=== PATIENT | female | born 1990 | race Caucasian/White ===

== ENCOUNTER 2018-12-04 11:57 | Emergency (ER) | payer BC ==
[~2018-12-04] VITALS: Ht 162.6 cm; Wt 53.4 kg
[2018-12-04 11:58] VITALS: BP 122/90
== END 2018-12-04 12:55 | disposition home or self-care (01) ==
LOC: ED 12:30
DX: L03.211 Cellulitis of face (principal); F17.200 Nicotine dependence, unspecified, uncomplicated
CPT/HCPCS: 99283

== ENCOUNTER 2019-10-07 10:23 | Emergency (ER) | payer BC, OTHER ==
[~2019-10-07] VITALS: Ht 162.6 cm; Wt 56.5 kg
[2019-10-07 10:27] VITALS: BP 119/75
--- NOTE | 2019-10-07 11:00 | NUR ---
TO [facility] FROM LOBBY
--- NOTE | 2019-10-07 11:19 | NUR ---
29 Y/O FEMALE PRESENTS TO ED WITH C/O FB. PER PT "I CUT A WIRE FROM MY BRACES AND IT WENT DOWN MY THROAT. IT HAPPENED TWO DAYS AGO. IT JUST FEELS LIKE IT'S STUCK THERE." NADN. NO C/O COMPLICATIONS WITH EATING, SWALLOWING.
--- NOTE | 2019-10-07 11:56 | NUR ---
BEDSIDE REPORT TO JAYLIN TAVARES.
--- NOTE | 2019-10-07 12:39 | NUR ---
Patient/Caregiver given discharge instructions and they have confirmed that they understand the instructions. Patient ambulatory with steady gait.
== END 2019-10-07 12:41 | disposition home or self-care (01) ==
LOC: ED 12:00
DX: T17.298A Other foreign object in pharynx causing other injury, initial encounter (principal); X58.XXXA Exposure to other specified factors, initial encounter; Y93.89 Activity, other specified; Y92.89 Other specified places as the place of occurrence of the external cause; Y99.8 Other external cause status
CPT/HCPCS: 70360; 99283

== ENCOUNTER 2020-09-04 11:51 | Emergency (ER) | payer MEDICAID ==
--- NOTE | 2020-09-04 12:15 | NUR ---
INITIAL PT CONTACT. PT PRESENTS TO ED C/O INTERMITTENT CHEST PAIN AND PALPITATIONS THAT HAVE BEEN OCCURING FOR 3 DAYS. 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 PT STATES THE PAIN IS PRESENT INTERMITTENTLY AND LASTS 5-10 MINUTES AT A TIME, ABLE TO "CALM DOWN" AND REDUCE CHEST PAIN. PT SITTING UPRIGHT ON GURNEY, NAD, VSS. PT DENIES ANY NEEDS AT THIS TIME. ERP AT BEDSIDE. CALL LIGHT WITHIN REACH.
[2020-09-04 12:45] LABS: BASOPHILS % (AUTO) 1 % (0-1); EOSINOPHILS % (AUTO) 4 % (1-7); LYMPHOCYTES % (AUTO) 31 % (22-44); MEAN CORPUSCULAR HEMOGLOBIN 31.2 pg (27.0-34.8); MEAN CORPUSCULAR HGB CONC 33.3 g/dL (32.4-35.8); MEAN PLATELET VOLUME 8.6 fL (7.4-10.4); MONOCYTES % (AUTO) 9 % (2-9); NEUTROPHILS % (AUTO) 55 % (42-75); PLATELET COUNT 209 x10^3/uL (130-400); RED BLOOD COUNT 4.54 x10^6/uL (3.82-5.3); RED CELL DISTRIBUTION WIDTH 12.6 % (9.6-15.2)
[2020-09-04 12:57] LABS: ALANINE AMINOTRANSFERASE 20 U/L (12-78); ALBUMIN 4.1 g/dL (3.4-5.0); ANION GAP 4 mmol/L (5-15); CALCIUM 9.1 mg/dL (8.5-10.1); CHLORIDE 106 mmol/L (98-107); CREATININE 0.77 mg/dL (0.55-1.02)
--- NOTE | 2020-09-04 13:00 | NUR ---
PT SITTING UPRIGHT ON GURNEY, NAD, VSS. PT DENIES ANY NEEDS AT THIS TIME. CALL LIGHT WITHIN REACH.
[2020-09-04 13:03] LABS: ALKALINE PHOSPHATASE 76 U/L (45-117); TOTAL PROTEIN 7.8 g/dL (6.4-8.2); TROPONIN I < 0.015 ng/mL (0.000-0.045)
[2020-09-04 13:05] LABS: MD NO
[2020-09-04 13:40] VITALS: BP 108/64
--- NOTE | 2020-09-04 13:40 | NUR ---
Patient given discharge instructions and they have confirmed that they understand the instructions. Patient ambulatory with steady gait.
== END 2020-09-04 13:49 | disposition home or self-care (01) ==
LOC: ED 12:26
DX: R07.89 Other chest pain (principal); R00.2 Palpitations; M79.602 Pain in left arm
CPT/HCPCS: 36415; 71045; 80053; 84443; 84484; 84703; 85025; 93005; 99285

== ENCOUNTER 2021-02-02 07:01 | Emergency (ER) | payer MEDICAID ==
[~2021-02-02] VITALS: Ht 162.6 cm; Wt 54.5 kg
[2021-02-02] MEDS ORDERED: DICYCLOMINE 10 MG/ML, 2ML IM ONE (07:30)
[2021-02-02] MEDS ORDERED: SODIUM CHLORIDE FLUSH 10ML SYR IVF ONE (07:30)
[2021-02-02] MEDS ORDERED: ONDANSETRON 2MG/ML, 2ML IVPush ONE (07:30)
[2021-02-02] MEDS ORDERED: SODIUM CHLORIDE 0.9% 1,000ML IVBOLUS ONE (07:30)
--- NOTE | 2021-02-02 07:47 | NUR ---
PT PRESENTS TO ED WITH C/O N/V/D X3 HOURS. PT STATES LLQ AND RLQ ABD PAIN. PT A&O, RESPS EVEN AND UNLABORED, VSS. ERPA AT BEDSIDE FOR EVAL. PT REFUSING LABS/UA. ORDERS RECEIEVED.
[2021-02-02] MEDS ORDERED: ONDANSETRON 2MG/ML, 2ML ONE (08:01)
--- NOTE | 2021-02-02 08:12 | NUR ---
PT CONTINUING TO REFUSE LAB/UA. EDUCATION PROVIDED.
[2021-02-02] MEDS ORDERED: PROCHLORPERAZINE 5 MG/ML, 2ML ONE (08:30)
[2021-02-02] MEDS ORDERED: KETOROLAC 30 MG/1 ML IVPush ONE (08:30)
[2021-02-02] MEDS ORDERED: DICYCLOMINE 10 MG/ML, 2ML ONE (08:30)
[2021-02-02] MEDS ORDERED: KETOROLAC 30 MG/1 ML ONE (08:30)
[2021-02-02] MEDS ORDERED: PROCHLORPERAZINE 5 MG/ML, 2ML IVPush ONE (08:30)
[2021-02-02 08:40] VITALS: BP 140/90
--- NOTE | 2021-02-02 08:58 | NUR ---
PT AGREEING TO HAVE TESTING DONE, SABINE ROBERTSON NOTIFIED.
--- NOTE | 2021-02-02 09:27 | NUR ---
DISCHARGE INSTRUCTIONS REVIEWED, PT VERBALIZED UNDERSTANDING. AMBULATORY TO DISCHARGE DESK WITH STEADY GAIT
== END 2021-02-02 09:29 | disposition home or self-care (01) ==
LOC: ED 08:02
DX: K52.9 Noninfective gastroenteritis and colitis, unspecified (principal)
CPT/HCPCS: 96361; 96372; 96374; 96375; 99284; J0500; J0780; J1885; J2405; J7030